=== PATIENT | male | born 1965 | race Two or more races ===

== ENCOUNTER 2019-02-06 05:02 | Inpatient (IN) | payer OTHER ==
[~2019-02-06] VITALS: Ht 172.7 cm; Wt 96.2 kg
--- NOTE | 2019-02-06 05:49 | NUR ---
MS/RN RECEIVED PATIENT AT 0515 ADMISSION OF DAY SURGERY FOR RIGHT TOTAL KNEE REPLACEMENT. PATIENT WAS AWAKE, ALERT, ORIENTED, COMFORTABLE, NO C/O PAIN, NO DISTRESS NOTED, ADMISSION DONE PER PROTOCOL, CONSENT FOR THE SURGERY WAS DONE, IV HEPLOCK DONE BY THE CHARGE NURSE, PLAN OF CARE DISCUSSED WITH THE PATIENT, VERBALIZED UNDERSTANDING. TAUGHT THE USE OF CALL LIGHT, WILL MONITOR.
[2019-02-06 05:57] VITALS: BP 123/78
--- NOTE | 2019-02-06 07:35 | NUR ---
MS RN OPENING NOTE RECEIVED PT. A/OX4. PER SURGERY RN JENNY, NO NEED TO GIVE MEDS HERE. PATIENT STATES HE HAS NOT EATEN SINCE 10PM LAST NIGHT. CONSENTS SIGNED. SURGERY TRANSPORT TEAM HAVE ARRIVED TO TAKE PATIENT
[2019-02-06] MEDS ORDERED: KETOROLAC TROMETHAMINE INJ 30 MG/ML VIAL ONE ×2 (08:49→13:19)
[2019-02-06] MEDS ORDERED: ANESTHESIA TRAY IN PYXIS 1 EA TRAY MC ONE (08:49)
[2019-02-06] MEDS ORDERED: MORPHINE SULFATE INJ 4 MG/ML DISP.SYRIN ONE (08:50)
[2019-02-06] MEDS ORDERED: BUPIVACAINE MPF 0.5% W/EPI INJ 30 ML VIAL ONE ×2 (08:50→09:55)
[2019-02-06] MEDS ORDERED: BACITRACIN 50000 UNITS/VIAL ONE (08:50)
[2019-02-06] MEDS ORDERED: TRANEXAMIC ACID 1,500 MG in IV NS 0.9% 50 ML IV ONE (09:00)
[2019-02-06] MEDS ORDERED: METOCLOPRAMIDE HCL 10 MG/2 ML VIAL ONE (09:01)
[2019-02-06] MEDS ORDERED: ACETAMINOPHEN ES 500 MG TABLET ONE (09:01)
[2019-02-06] MEDS ORDERED: oxyCODONE HCL SR 10MG TAB.SR.12H PO ONE ×2 (09:01→13:25)
[2019-02-06] MEDS ORDERED: CELECOXIB 100 MG CAPSULE ONE (09:07)
[2019-02-06] MEDS ORDERED: FENTANYL PF 100MCG/2ML AMPUL ONE ×2 (09:34→09:35)
[2019-02-06] MEDS ORDERED: MIDAZOLAM HCL 2 MG/2ML VIAL ONE (09:34)
[2019-02-06] MEDS ORDERED: BUPIVACAINE 0.5 % PF 150 MG/30 ML VIAL ONE (09:39)
[2019-02-06] MEDS ORDERED: BUPIVACAINE 0.75% DEXT-PF 2 ML AMPUL ONE (09:40)
[2019-02-06] MEDS ORDERED: HYDROCODONE/APAP 5/325MG 1 EACH TABLET PO PRN (13:30)
[2019-02-06] MEDS: KETOROLAC TROMETHAMINE INJ 30 MG/ML VIAL IV SCH (13:30)
[2019-02-06] MEDS ORDERED: ONDANSETRON HCL/PF 4 MG/2 ML VIAL IVP PRN (13:30)
[2019-02-06] MEDS ORDERED: oxyCODONE IR immediate release 5 MG PO ONE (13:30)
[2019-02-06] MEDS ORDERED: ASPIRIN EC 325 MG TABLET.DR PO ONE (13:30)
[2019-02-06] MEDS ORDERED: KETOROLAC TROMETHAMINE INJ 30 MG/ML VIAL IV ONE (13:30)
--- NOTE | 2019-02-06 13:30 | NUR ---
ICU/RN: DUPLICATE PACU ORDER FOR TORADOL HELD; ADMINISTERED 1330; X1 ORDER ONLY PER DR CAMACHO. ADMINISTERED IN PACU. PLEASE REFER TO PACU DOCUMENTATION FOR DETAILS.
[2019-02-06] MEDS ORDERED: ACETAMINOPHEN 325 MG TABLET PO PRN (14:00)
[2019-02-06] MEDS ORDERED: HYDROMORPHONE 1 MG/1 ML DISP.SYRIN IV PRN (14:00)
[2019-02-06] MEDS ORDERED: IV D5/0.45 NACL 1,000 ML IV PRN (14:00)
--- NOTE | 2019-02-06 14:00 | NUR ---
RECEIVED PATIENT POST OP AWAKE, ALERT AND ORIENTED X4, BP 104/71, HR 65, SPO2 98% ON ROOM AIR. ABLE TO WIGGLE TOES ON RIGHT LEG, TOES WARM TO TOUCH, DENIES NUMBNESS OR TINGLING. REPORT GIVEN BY JENNY SHAIKH. POST OP ORDERS RECEIVED. IV SITE RIGHT WRIST 20G C/D/I, NO SIGNS OF INFILTRATION. SALGADO CATHETER DRAINING CLEAR YELLOW URINE. WILL CONTINUE TO MONITOR
[2019-02-06] MEDS ORDERED: LANS30CA54 GT (14:16)
[2019-02-06] MEDS ORDERED: FURO40TA5 PO (14:16)
[2019-02-06] MEDS ORDERED: DOCU100C36 PO (14:16)
[2019-02-06] MEDS ORDERED: MULT1TAB69 PO (14:16)
[2019-02-06] MEDS ORDERED: IBUP-1955 PO (14:16)
[2019-02-06] MEDS ORDERED: SPIR25TA6 PO (14:16)
[2019-02-06 16:00] VITALS: BP 100/74
[2019-02-06] MEDS: CELECOXIB 100 MG CAPSULE PO SCH (16:37)
[2019-02-06] MEDS: ASPIRIN 325 MG TABLET PO SCH (16:37)
--- NOTE | 2019-02-06 18:00 | NUR ---
MS RN CLOSING NOTE PATIENT A/OX4. ABLE TO WIGGLE TOES OF RIGHT LEG, TOES WARM TO TOUCH, CAP REFILL <3SEC, DENIES NUMBNESS OR TINGLING. PATIENT IN NO ACUTE DISTRESS. REPORT GIVEN TO [facility] NURSE FOR JUAQUIN
[2019-02-06 20:00] VITALS: BP 119/66
--- NOTE | 2019-02-06 20:19 | NUR ---
RT NOTE PATIENT TOLERATED INCENTIVE SPIROMETER WELL. PATIENT WAS INFORMED OF THE PROPER USAGE AND FREQUENCY.NO SOB NOTED, WILL CONTINUE TO MONITOR PATIENT. Addendum: 02/06/19 at 2023 by LISA JIMÉNEZ RT Amended: Links added.
[2019-02-06] MEDS ORDERED: DOCUSATE SODIUM 100 MG CAPSULE PO PRN (22:00)
[2019-02-06] MEDS ORDERED: MAGNESIUM HYDROXIDE 30 ML UDC PO PRN (22:00)
[2019-02-06] MEDS ORDERED: ZOLPIDEM TARTRATE 5 MG TABLET PO PRN (22:00)
[2019-02-06] MEDS: ANCEF 1 GM/50 ML D5W IV SCH ×2 (22:36)
[2019-02-07] MEDS: KETOROLAC TROMETHAMINE INJ 30 MG/ML VIAL IV SCH ×4 (01:30→20:48)
[2019-02-07 04:00] VITALS: BP 107/64
[2019-02-07] MEDS: ANCEF 1 GM/50 ML D5W IV SCH ×2 (05:32)
--- NOTE | 2019-02-07 06:10 | NUR ---
RN NOTES RECEIVED PATIENT AWAKE IN BED WATCHING TV WITH NO DISTRESS NOTED. BREATHING EVEN AND UNLABORED. aLERT AND ORIENTED, HEBREW SPEAKING. COMPLAINT OF HEADACHE, NORCO GIVEN WITH RELIEF. SLEPT GOOD. SALGADO CATH IN PLACE, PATENT DRAINING CLEAR YELLOW WITH NO FOUL ODOR, TO BE REMOVED DAY#1 SP SURGERY. NEEDS ATTENDED, KEPT CLEAN AND DRY. WILL ENDORSE TO NEXT SHIFT FOR CONTINUITY OF CARE.
[2019-02-07 06:12] LABS: BASOPHILS % (AUTO) 0.2 % (0.0-2.0); EOSINOPHILS % (AUTO) 2.4 % (0.0-6.0); HEMATOCRIT 29 % (39-51); HEMOGLOBIN 9.9 g/dL (13.5-17.5); LYMPHOCYTES % (AUTO) 19.9 % (20.0-44.0); MEAN CORPUSCULAR HGB CONC 34 g/dl (31.0-36.0); MEAN CORPUSCULAR VOLUME 83 fL (80-96); MONOCYTES # (AUTO) 0.6 /CMM (0.1-1.30); MONOCYTES % (AUTO) 12.7 % (2.0-12.0); NEUTROPHILS # (AUTO) 3.2 /CMM (1.8-8.9); NEUTROPHILS % (AUTO) 64.8 % (43.0-81.0); PLATELET COUNT (AUTO) 125 /CMM (150-450); RED BLOOD CELL COUNT(AUTO) 3.47 MIL/uL (4.5-6.0); WHITE BLOOD COUNT (AUTO) 4.9 K/uL (4.3-11.0)
[2019-02-07 06:21] LABS: CALCIUM, SERUM 7.7 mg/dL (8.5-10.1); CREATININE 0.8 mg/dL (0.6-1.3); POTASSIUM 4.1 mmol/L (3.5-5.1)
--- NOTE | 2019-02-07 07:30 | NUR ---
MS/RN OPENING NOTE PATIENT IN BED IN STABLE CONDITION. A/O X 4, AMHARIC SPEAKING. NO S/S OF ACUTE DISTRESS. NO COMPLAIN OF PAIN OR DISCOMFORT AT THIS TIME. ALL NEEDS ATTENDED TO. CALL LIGHT WITHIN REACH. WILL CONTINUE TO MONITOR TO ENSURE SAFETY.
[2019-02-07 08:00] VITALS: BP 111/65
[2019-02-07] MEDS: ASPIRIN 325 MG TABLET PO SCH ×2 (08:11→17:20)
[2019-02-07] MEDS: CELECOXIB 100 MG CAPSULE PO SCH ×2 (08:11→17:20)
[2019-02-07] MEDS: DOCUSATE SODIUM 100 MG CAPSULE PO SCH (08:11)
[2019-02-07] MEDS: PANTOPRAZOLE 40 MG/PACK PACK GT SCH (08:11)
[2019-02-07] MEDS: MULTIVITAMINS,THERAGRAN 1 UDTAB TABLET PO SCH (08:11)
[2019-02-07] MEDS ORDERED: CELECOXIB 100 MG CAPSULE PO SCH (10:08)
[2019-02-07] MEDS: HYDROCODONE/APAP 5/325MG 1 EACH TABLET PO SCH ×4 (10:22→22:01)
[2019-02-07] MEDS ORDERED: KETOROLAC TROMETHAMINE INJ 30 MG/ML VIAL IV SCH (12:00)
[2019-02-07] MEDS: ONDANSETRON HCL/PF 4 MG/2 ML VIAL IVP SCH ×2 (12:00→18:00)
[2019-02-07 16:00] VITALS: BP 115/70
--- NOTE | 2019-02-07 18:21 | NUR ---
MS/RN CLOSING NOTE PATIENT IN BED IN STABLE CONDITION. A/O X 4, HUNGARIAN SPEAKING. NO SIGNS OF ACUTE DISTRESS. NO COMPLAIN OF PAIN OR DISCOMFORT AT THIS TIME. ALL NEEDS ATTENDED TO. CALL LIGHT WITHIN REACH. WILL ENDORSE TO NEXT SHIFT FOR CONTINUITY OF CARE.
--- NOTE | 2019-02-07 19:40 | NUR ---
RAE RN OPENING NOTE RECEIVED PATIENT'S BEDSIDE REPORT FROM AM RM. RECEIVED PT IN BED IN STABLE CONDITION. A/O X 4, MONEGAS[place] SPEAKING. NO S/S OF ACUTE DISTRESS. NO COMPLAIN OF PAIN OR DISCOMFORT AT THIS TIME. ALL NEEDS ATTENDED. CALL LIGHT WITHIN REACH. WILL CONTINUE TO MONITOR TO ENSURE SAFETY.
[2019-02-07 20:00] VITALS: BP 123/77
[2019-02-08] MEDS: HYDROCODONE/APAP 5/325MG 1 EACH TABLET PO SCH ×6 (01:15→20:10)
[2019-02-08] MEDS: KETOROLAC TROMETHAMINE INJ 30 MG/ML VIAL IV SCH ×2 (01:15→07:36)
[2019-02-08 04:00] VITALS: BP 121/62
--- NOTE | 2019-02-08 07:18 | NUR ---
MS RN OPENING NOTES RECEIVED PATIENT AWAKE IN BED IN NO ACUTE SIGNS OF DISTRESS. A/O X4. ANGOLAN SPEAKING, DENIES PAIN OR ANY DISCOMFORTS AT THIS TIME. ON ROOM AIR, RESPIRATIONS EVEN AND UNLABORED. SKIN WARM AND DRY TO TOUCH. DRESSING ON RIGHT KNEE C/D/I WITH IMMOBILIZER IN PLACE. IV ACCESS ON RIGHT WRIST G #20 INTACT AND PATENT. SAFETY MEASURES IN PLACE. BED IN LOW LOCKED POSITION WITH SIDE RAILS U PX2 CALL LIGHT WITHIN REACH. WILL CONTINUE TO MONITOR PT ACCORDINGLY.
[2019-02-08 08:00] VITALS: BP 106/57
[2019-02-08] MEDS: MULTIVITAMINS,THERAGRAN 1 UDTAB TABLET PO SCH (09:02)
[2019-02-08] MEDS: DOCUSATE SODIUM 100 MG CAPSULE PO SCH (09:02)
[2019-02-08] MEDS: PANTOPRAZOLE 40 MG/PACK PACK GT SCH (09:03)
[2019-02-08] MEDS: ASPIRIN 325 MG TABLET PO SCH ×2 (09:03→16:36)
[2019-02-08] MEDS: CELECOXIB 100 MG CAPSULE PO SCH ×2 (09:04→16:36)
--- NOTE | 2019-02-08 11:33 | NUR ---
RN NOTES PATIENT 2ND DAY POST OPERATION. SALGADO CATHETER Fr#16 REMOVED PER MD ORDER. WILL MONITOR PT FOR VOIDING.
--- NOTE | 2019-02-08 13:41 | NUR ---
RN NOTES PATIENT HAD PHYSICAL THERAPY TODAY AND ABLE TO WALK WITH [email or web address] CONTACT GUARD ASSIST. AFTER THERAPY, PHYSICAL THERAPIST APPLIED CPM MACHINE ON RIGHT LEG. WILL CONTINUE TO MONITOR.
[2019-02-08 16:00] VITALS: BP 112/70
--- NOTE | 2019-02-08 16:34 | NUR ---
RN NOTES PATIENT S/P SALGADO CATHETER REMOVED THIS MORNING AND HE'S ABLE TO URINATE VIA URINAL. NO HEMATURIA NOTED OR DIFFICULTY URINATING VOICED. WILL CONTINUE TO MONITOR.
--- NOTE | 2019-02-08 18:47 | NUR ---
MS RN CLOSING NOTES PATIENT AWAKE AND RESTING IN BED AT THIS TIME. A/O X4. THAI SPEAKING AND UNDERSTAND SOME TAMAZIGHT. ON ROOM AIR, TOLERATING WELL WITH NO SOB NOTED. SKIN WARM AND DRY TO TOUCH. DRESSING ON RIGHT KNEE C/D/I WITH IMMOBILIZER IN PLACE. IV ACCESS ON RIGHT WRIST G #20 INTACT AND PATENT, FLUSHED WITH NS AND OPERATIONAL. ALL NEEDS AND CARE ATTENDED WELL. SAFETY MEASURES IN PLACE. BED IN LOW LOCKED POSITION WITH SIDE RAILS U PX2 CALL LIGHT WITHIN REACH. WILL ENDORSE TO INJECTION WAX MOLDER NURSE FOR JUAQUIN.
[2019-02-08 20:00] VITALS: BP 117/77
[2019-02-09 04:00] VITALS: BP 95/62
[2019-02-09] MEDS: HYDROCODONE/APAP 5/325MG 1 EACH TABLET PO SCH ×6 (05:24→20:26)
[2019-02-09 06:00] VITALS: BP 95/62
--- NOTE | 2019-02-09 07:15 | NUR ---
MS RN OPENING NOTES RECEIVED PT. A/OX4. NO ACUTE DISTRESS OR SOB NOTED. ON ROOM AIR, TOLERATING WELL. R FOOT WARM TO TOUCH, NO NUMBNESS OR TINGLING, ABLE TO WIGGLE TOES, SENSATION INTACT. R LEG WRAPPED IN KIM BANDAGE, IMMOBILIZER ON. PT. EDUCATED ON SAFETY PRECAUTIONS. REPORTS 8/10 ACHING PAIN. L LEG SCDS ON. URINAL AT BEDSIDE. IV SITE R WRIST 20G C/D/I, SL, NO S/S INFILTRATION. BED LOCKED, LOW, SIDE RAILS UPX2, CALL LIGHT WITHIN REACH, PT. ABLE TO MAKE NEEDS KNOWN.
[2019-02-09 08:00] VITALS: BP_SYST 106; BP_SYST 132; BP_DIAS 62; BP_DIAS 82
[2019-02-09] MEDS: CELECOXIB 100 MG CAPSULE PO SCH ×2 (08:41→17:15)
[2019-02-09] MEDS: ASPIRIN 325 MG TABLET PO SCH ×2 (08:41→17:15)
[2019-02-09] MEDS: MULTIVITAMINS,THERAGRAN 1 UDTAB TABLET PO SCH (08:42)
[2019-02-09] MEDS: DOCUSATE SODIUM 100 MG CAPSULE PO SCH (08:42)
[2019-02-09] MEDS: PANTOPRAZOLE 40 MG/PACK PACK GT SCH (08:45)
[2019-02-09 16:00] VITALS: BP 106/65
--- NOTE | 2019-02-09 18:00 | NUR ---
RN CLOSING NOTE PT. IN BED EATING DINNER A/OX4. NO ACUTE DISTRESS OR SOB NOTED. VOIDED 700mL URINE IN URINAL. IV SITE C/D/I 20G SL. NORCO GIVEN AROUND THE CLOCK ORDERED. R KNEE WRAPPED IN KIM BANDAGE, IN IMMOBILIZER AND PER BHAVANA ASENCIO NO SCD SLEEVE ON THAT LEG, HE IS AWARE PT. ONLY ASPIRIN FOR VTE. PATIENT AMBULATED TODAY WITH PHYSICAL THERAPY. R FOOT SENSATION INTACT, WARM TO TOUCH, CAN WIGGLE TOES. BED LOCKED, LOW, SIDE RAILS UPX2, CALL LIGHT WITHIN REACH, PATIENT ABLE TO MAKE NEEDS KNOWN. WILL ENDORSE TO NOC FOR JUAQUIN
[2019-02-09 20:00] VITALS: BP_SYST 106; BP_SYST 115; BP_DIAS 65; BP_DIAS 68
[2019-02-10] MEDS: HYDROCODONE/APAP 5/325MG 1 EACH TABLET PO SCH ×6 (00:16→20:17)
[2019-02-10 04:00] VITALS: BP 122/72
--- NOTE | 2019-02-10 07:30 | NUR ---
MS RN AM NOTES PT IN BED, A/OX4. NO ACUTE DISTRESS OR SOB NOTED. ON ROOM AIR, TOLERATING WELL. S/P RT TOTAL KNEE REPLACEMENT BY DR. CAMACHO ON 02/06/19. KIM BANDAGE IN PLACE. R FOOT WARM TO TOUCH, NO NUMBNESS OR TINGLING, ABLE TO WIGGLE TOES, SENSATION INTACT. IMMOBILIZER OFF AT THIS TIME. REPORTS TOLERABLE PAIN 2/10 AT THIS TIME. IV SITE R WRIST 20G C/D/I, SL, SITE CLEAR. PT. EDUCATED ON SAFETY PRECAUTIONS. URINAL AT BEDSIDE BUT WITH BRP. BED LOCKED, LOW, SIDE RAILS UPX2, CALL LIGHT WITHIN REACH, WILL CONT TO MONITOR.
[2019-02-10 08:00] VITALS: BP 110/69
[2019-02-10] MEDS: ASPIRIN 325 MG TABLET PO SCH ×2 (09:05→16:54)
[2019-02-10] MEDS: CELECOXIB 100 MG CAPSULE PO SCH ×2 (09:05→16:54)
[2019-02-10] MEDS: MULTIVITAMINS,THERAGRAN 1 UDTAB TABLET PO SCH (09:06)
[2019-02-10] MEDS: PANTOPRAZOLE 40 MG/PACK PACK GT SCH (09:06)
[2019-02-10] MEDS: DOCUSATE SODIUM 100 MG CAPSULE PO SCH (09:06)
--- NOTE | 2019-02-10 09:30 | NUR ---
MS RN NOTES DUE MEDS GIVEN
[2019-02-10 10:00] VITALS: BP 110/69
[2019-02-10] MEDS ORDERED: ACET325T53 PO (11:44)
[2019-02-10 16:00] VITALS: BP 115/73
--- NOTE | 2019-02-10 19:05 | NUR ---
MS RN CLOSING NOTES PT IN BED, RESTING COMFORTABLY. A/OX4. NO ACUTE DISTRESS OR SOB NOTED. ON ROOM AIR, TOLERATING WELL. S/P RT TOTAL KNEE REPLACEMENT BY DR. CAMACHO ON 02/06/19. KIM BANDAGE IN PLACE. R FOOT WARM TO TOUCH, NO NUMBNESS OR TINGLING, ABLE TO WIGGLE TOES, SENSATION INTACT. IMMOBILIZER OFF AT THIS TIME. REPORTS TOLERABLE PAIN 2/10 AT THIS TIME. IV SITE R WRIST 20G C/D/I, SL, SITE CLEAR. SAFETY MEASURES IN PLACE.URINAL AT BEDSIDE BUT WITH BRP. BED LOCKED, LOW, SIDE RAILS UPX2, CALL LIGHT WITHIN REACH, ALL NEEDS MET. NO OTHER SIGNIFICANT CHANGE IN CONDITION. WILL ENDORSE TO NEXT SHIFT FOR JUAQUIN. WAITING FOR PLACEMENT.
[2019-02-10 20:00] VITALS: BP 125/74
--- NOTE | 2019-02-10 20:03 | NUR ---
RN MS OPENING NOTES RECEIVED PT IN BED , AWAKE ALERT ORIENTED X4 [place] SPEAKING. BREATHING EVEN AND UNLABORED ON ROOM AIR. NO COMPLAINT OF PAIN OR DISCOMFORT AT THE MOMENT. IV ACCESS ON THE R WRIST 20G SL. PATENT AND FLUSHING. BED IN LOWEST LOCKED POSITION, CALL LIGHT WITHIN REACH AT ALL TIMES, WILL CONTINUE TO MONITOR FREQUENTLY/
[2019-02-11] MEDS: HYDROCODONE/APAP 5/325MG 1 EACH TABLET PO SCH ×5 (00:32→19:16)
[2019-02-11 04:00] VITALS: BP 125/74
--- NOTE | 2019-02-11 06:09 | NUR ---
RN MS CLOSING NOTES PT REMAINS IN BED , AWAKE ALERT ORIENTED X4 SW[place]ISH SPEAKING. BREATHING EVEN AND UNLABORED ON ROOM AIR. NO COMPLAINT OF PAIN OR DISCOMFORT AT THE MOMENT. IV ACCESS ON THE R WRIST 20G SL. PATENT AND FLUSHING. BED IN LOWEST LOCKED POSITION, CALL LIGHT WITHIN REACH AT ALL TIMES, WILL ENDORSE TO DAY NURSE FOR JUAQUIN
--- NOTE | 2019-02-11 07:40 | NUR ---
MS RN OPENING NOTES RECEIVED PT IN BED , AWAKE ALERT ORIENTED X4 [place] SPEAKING. NO SOB OR ACUTE DISTRESS NOTED. ON ROOM AIR. NO COMPLAINT OF PAIN OR DISCOMFORT AT THE MOMENT. IV ACCESS ON THE R WRIST 20G SL. INTACT AND PATENT. SAFETY MEASURES IN PLACE. BED IN LOWEST LOCKED POSITION, CALL LIGHT WITHIN REACH AT ALL TIMES, WILL CONTINUE TO MONITOR.
[2019-02-11 08:00] VITALS: BP 114/70
[2019-02-11] MEDS: DOCUSATE SODIUM 100 MG CAPSULE PO SCH (08:11)
[2019-02-11] MEDS: ASPIRIN 325 MG TABLET PO SCH ×2 (08:11→17:20)
[2019-02-11] MEDS: CELECOXIB 100 MG CAPSULE PO SCH ×2 (08:11→17:20)
[2019-02-11] MEDS: MULTIVITAMINS,THERAGRAN 1 UDTAB TABLET PO SCH (08:11)
[2019-02-11] MEDS: PANTOPRAZOLE 40 MG/PACK PACK GT SCH (08:11)
[2019-02-11 16:00] VITALS: BP 118/71
--- NOTE | 2019-02-11 19:30 | NUR ---
RECEIVED PATIENT IN BED AWAKE. AO X 3, ABLE TO MAKE NEEDS KNOWN. NO ACUTE DISTRESS NOTED. SAFETY REMINDERS GIVEN. NOTIFIED OF DISCHARGED TO HOME. PER PATIENT, HE IS ALREADY AWARE AND READY TO GO HOME. PATIENT MADE ARRANGEMENTS WITH HIS BROTHER TO PICK HIM UP. ON LOW BED WITH BILATERAL UPPER SIDE RAILS UP. CALL BEST WITHIN EASY REACH. WILL CONTINUE TO MONITOR.
[2019-02-11 20:00] VITALS: BP 144/77
--- NOTE | 2019-02-11 20:08 | NUR ---
MS RN CLOSING NOTES PT IN BED , AWAKE ALERT ORIENTED X4 DUTCH SPEAKING. NO SOB OR ACUTE DISTRESS NOTED. ON ROOM AIR. NO COMPLAINT OF PAIN OR DISCOMFORT AT THE MOMENT. IV ACCESS ON THE R WRIST 20G SL. INTACT AND PATENT. DISCHARGE ORDER IN PLACE. PATIENT SECURING TRANSPORT W/ FAMILY MEMEBER TO HOME. NO CHANGES DURING SHIFT. SAFETY MEASURES IN PLACE. BED IN LOWEST LOCKED POSITION, CALL LIGHT WITHIN REACH AT ALL TIMES, CARE ENDORSED TO ABRASIVE MIXER HELPER RN.
--- NOTE | 2019-02-11 21:17 | NUR ---
PATIENT GIVEN DISCHARGED INSTRUCTIONS WITH PARTNER MANAGEMENT CONSULTANT. PATIENT VERBALIZED UNDERSTANDING. PATIENT WAS GIVEN SIGNED DISCHARGED PAPERS. PATIENT'S BELONGINGS RECORDED, PACKED, AND GIVEN TO PATIENT. PATIENT IN STABLE CONDITION. IMMOBILIZER ON RIGHT LEG. IV AND ARMBAND DCD. PATIENT ESCORTED TO ER EXIT VIA WHEELCHAIR BY MACHINE IRONER. PATIENT'S FAMILY IS WAITING IN PRIVATE CAR.
== END 2019-02-11 21:00 | disposition home or self-care (01) | DRG 470 ==
LOC: DS 05:02 → MEDSG1 05:03
PROVIDERS: ADMIT Nurse Practitioner Acute Care; ATTEND Nurse Practitioner Acute Care
PROC: 0SRC0J9 Replacement of Right Knee Joint with Synthetic Substitute, Cemented, Open Approach (ICD-10-PCS; principal; 2019-02-06)
DX: M17.11 Unilateral primary osteoarthritis, right knee (principal); K70.30 Alcoholic cirrhosis of liver without ascites; I10 Essential (primary) hypertension; D69.59 Other secondary thrombocytopenia; D63.8 Anemia in other chronic diseases classified elsewhere
CPT/HCPCS: 36415; 73560-TC; 80048-TC; 85025-TC; 86850-TC; 87081-TC; 88305-TC; 88311-TC; 94799-TC; 97110-TC; 97116-TC; 97530-TC; 97760-TC; A4216; A4217; A6402; C1713; G0378; J0690; J1100; J1885; J2250; J2270; J2405; J2704; J2765; J3010; J3490; J7060; L1830